=== PATIENT | male | born 1990 | race Caucasian/White ===

== ENCOUNTER 2017-01-15 04:59 | Emergency (ER) | payer BC ==
[2017-01-15] MEDS ORDERED: Ondansetron 4 MG/2 ML SDV IVPUSH ONE (05:29)
[2017-01-15] MEDS ORDERED: Sodium Chloride 0.9% 1,000 ML IV ONE (05:29)
[2017-01-15 05:38] VITALS: BP 142/88
--- NOTE | 2017-01-15 05:40 | EDM.PDOC ---
ED HPI GENERAL MEDICAL PROBLEM - General Chief Complaint: Chest Pain Stated Complaint: RAPID HEART RATE DIZZYNESS Time Seen by Provider: 01/15/17 05:11 Source of Information: Reports: Patient, Old records, RN notes reviewed History Limitations: Reports: No limitations - History of Present Illness INITIAL COMMENTS - FREE TEXT/NARRATIVE: The patient states that he is an alcoholic, and has been drinking heavily for the past 6 days. His last drink was around 19:00 to 20:00 last night. He states that he was having some difficulty sleeping, therefore drove here from [place] this morning. He states that he feels dehydrated, and episodically has a sensation of a racing or heavy heartbeat. He is not feeling it at this time, but had it as recently as in our parking lot. He states that he has had this previously, after heavy drinking. He reports mild nausea, but has not had any emesis. - Related Data Allergies Allergy/AdvReac Type Severity Reaction Status Date / Time No Known Allergies Allergy Verified 08/12/16 02:06 CDT Home Meds: Home Meds . [No Known Home Meds] 08/12/16 [History] Past Medical History Psychiatric History: Reports: Addiction (Alcoholism) Social & Family History - Family History Family Medical History: Noncontributory - Tobacco Use Smoking Status *Q: Current Some Day Smoker Years of Tobacco use: 10 Packs/Tins Daily: 0.1 - Caffeine Use Caffeine Use: Reports: None Other Caffeine Use: 5 hour energy drink 5 days ago - Alcohol Use Alcohol Use History: Yes Days Per Week of Alcohol Use: 7 Number of Drinks Per Day: 10 Total Drinks Per Week: 70 Alcohol Use Frequency: Binges - Recreational Drug Use Recreational Drug Use: Yes Drug Use in Last 12 Months: Yes Recreational Drug Type: Reports: Cocaine, Other (see below) Other Recreational Drug Type: Adderall - Living Situation & Occupation Living situation: Reports: single, other (with friends) Occupation: employed ([employer]) ED ROS GENERAL - Review of Systems Review Of Systems: See Below Constitutional: Reports: no symptoms HEENT: Reports: No symptoms Respiratory: Reports: No Symptoms Cardiovascular: Reports: No symptoms Endocrine: Reports: no symptoms GI/Abdominal: Reports: Diarrhea (Occasionally) : Reports: no symptoms Musculoskeletal: Reports: no symptoms Skin: Reports: no symptoms Neurological: Reports: No Symptoms Psychiatric: Reports: No symptoms Hematologic/Lymphatic: Reports: no symptoms Immunologic: Reports: no symptoms ED EXAM, GENERAL - Physical Exam Exam: See Below Exam Limited By: No limitations General Appearance: alert, WD/WN, no apparent distress Eye Exam: bilateral eye: EOMI, normal inspection Ears: normal external exam, hearing grossly normal Ear Exam: bilateral ear: auricle normal Nose: normal inspection, no blood Throat/Mouth: Normal inspection, Normal lips, Normal voice, No airway compromise Head: atraumatic, normocephalic Neck: normal inspection, full range of motion Respiratory/Chest: no respiratory distress, lungs clear, normal breath sounds, no accessory muscle use Cardiovascular: normal peripheral pulses, regular rate, rhythm, no edema, no gallop, no JVD, no murmur, no rub Peripheral Pulses: 4+: radial (L), radial (R) GI/Abdominal: normal bowel sounds, soft, non tender, no organomegaly, no distention, no abnormal bruit, no mass Back Exam: normal inspection, full range of motion, NT Extremities: normal inspection, normal range of motion, no pedal edema, normal capillary refill Neurological: alert, oriented, normal cognition, no motor/sensory deficits Psychiatric: normal affect Skin Exam: Warm, Dry, Intact, Normal color, No rash Lymphatic: no adenopathy EKG INTERPRETATION EKG Date: 01/15/17 Time: 05:10 Rhythm: NSR Rate (beats/min): 67 [place]: normal P-wave: present QRS: normal ST-T: normal QT: normal Comparison: change from previous EKG (07/26/2016 - sinus tachycardia, otherwise no change.) Course - Vital Signs Last Recorded V/S: Last Vital Signs Temp 37.0 C 01/15/17 05:09 Pulse 74 01/15/17 05:09 Resp 17 01/15/17 05:09 BP 142/88 H 01/15/17 05:09 Pulse Ox 96 01/15/17 05:09 Orthostatic Blood Pressure [ 132/77 Standing] Orthostatic Blood Pressure [ 138/84 Sitting] Orthostatic Blood Pressure [ 125/70 Supine] - Orders/Labs/Meds Orders: Active Orders 24 hr Category Date Time Status EKG Documentation Completion [RC] STAT Care 01/15/17 05:01 Active Orthostatic Vital Signs [RC] STAT Care 01/15/17 05:29 Active Labs: Laboratory Tests 01/15/17 01/15/17 Range/Units 05:37 05:37 WBC 6.24 (4.23-9.07) K/mm3 RBC 4.95 (4.63-6.08) M/mm3 Hgb 15.8 (13.7-17.5) gm/L Hct 44.5 (40.1-51.0) % MCV 89.9 (79.0-92.2) fl MCH 31.9 (25.7-32.2) pg MCHC 35.5 (32.2-35.5) g/dl RDW Std Deviation 43.0 (35.1-43.9) fL Plt Count 410 H (163-337) K/mm3 MPV 10.2 (9.4-12.3) fl Neutrophils % (Manual) 54 (40-60) % Band Neutrophils % 0 (0-10) % Lymphocytes % (Manual) 37 (20-40) % Atypical Lymphs % 0 % Monocytes % (Manual) 5 (2-10) % Eosinophils % (Manual) 4 (0.8-7.0) % Basophils % (Manual) 0 L (0.2-1.2) Platelet Estimate Adequate RBC Morph Comment Normal Sodium 138 (136-145) mEq/L Potassium 3.5 (3.5-5.1) mEq/L Chloride 102 (98-107) mEq/L Carbon Dioxide 23 (21-32) mEq/L Anion Gap 16.5 H (5-15) BUN 9 (7-18) mg/dL Creatinine 0.9 (0.7-1.3) mg/dL Est Cr Clr Drug Dosing 136.87 mL/min Estimated GFR (MDRD) > 60 (>60) mL/min BUN/Creatinine Ratio 10.0 L (14-18) Glucose 108 H (74-106) mg/dL Calcium 9.0 (8.5-10.1) mg/dL Magnesium 1.7 L (1.8-2.4) mg/dl Total Bilirubin 0.4 (0.2-1.0) mg/dL AST 44 H (15-37) U/L ALT 88 H (16-63) U/L Alkaline Phosphatase 70 (46-116) U/L Total Protein 7.9 (6.4-8.2) g/dl Albumin 4.3 (3.4-5.0) g/dl Globulin 3.6 gm/dL Albumin/Globulin Ratio 1.2 (1-2) Meds: Medications Discontinued Medications Generic Name Dose Route Start Last Admin Trade Name Leny PRN Reason Stop Dose Admin Sodium Chloride 1,000 mls @ 999 mls/hr 01/15/17 05:29 01/15/17 05:43 Normal Saline IV 01/15/17 06:29 999 mls/hr ONETIME ONE Administration Ondansetron HCl 4 mg 01/15/17 05:29 01/15/17 05:43 Zofran IVPUSH 01/15/17 05:30 4 mg ONETIME ONE Administration - Re-Assessments/Exams Free Text/Narrative Re-Assessment/Exam: 01/15/17 06:00 The patient is not orthostatic. 01/15/17 07:13 Test results discussed with the patient. He states he is feeling better after 1 L NS and IV Zofran. While the patient may feel dry, his orthostatics and chemistry panel do not indicate intravascular depletion or dehydration. The cause of the patient's palpitations is unclear - given his drinking history, it is possible that the patient is suffering from paroxysmal atrial fibrillation, although we did not document any dysrhythmias while the patient was here in the ED. I will discharge him home with the recommendation that he seek professional help regarding his alcoholism. Departure - Departure Time of Disposition: 07:14 Disposition: Home, Self-Care 01 Condition: good Clinical Impression: Alcoholism /alcohol abuse, Palpitations Referrals: PCP,None [Primary Care Provider] - Rita Espinal PA-C [Physician [employer] Inspector] - Forms: ED Department Discharge Additional Instructions: You were seen in the emergency room today for palpitations after drinking heavily for the past 6 days. Workup in the ER included blood work, an ECG, and positional blood pressure checks. Your entire workup was unremarkable. You are not dehydrated, and you have no electrolyte abnormalities. No abnormal heart rhythms were detected while you were in the ER. The cause of your palpitations is unclear. They may have been because you are not feeling well, or, it is possible that you may have intermittent abnormal rhythms that did not occur while you were in the ER. Stay well hydrated over the next couple of days, but avoid alcohol. We STRONGLY recommend that you seek professional help regarding your alcoholism. You may followup with Rita Espinal in the clinic, or with your own doctor in [place], as needed. If any other problems, please do not hesitate to return to the ER. - My Orders Last 24 Hours: My Active Orders 01/15/17 05:01 EKG Documentation Completion [RC] STAT 01/15/17 05:29 Orthostatic Vital Signs [RC] STAT - Assessment/Plan Last 24 Hours: My Active Orders 01/15/17 05:01 EKG Documentation Completion [RC] STAT 01/15/17 05:29 Orthostatic Vital Signs [RC] STAT
== END 2017-01-15 07:31 | disposition home or self-care (01) ==
LOC: JD.ED 04:59
DX: R00.2 Palpitations (principal); F10.10 Alcohol abuse, uncomplicated; F17.210 Nicotine dependence, cigarettes, uncomplicated
CPT/HCPCS: 36415; 80053; 83735; 85025; 93005; 96361; 96374; 99285; J2405; J7040; 99284